=== PATIENT | female | born 1935 | race African-American/Black ===

== ENCOUNTER 2018-03-05 18:40 | Inpatient (IN) | payer MEDICARE, MEDICAID ==
[~2018-03-05 18:40] MED LIST: Iopamidol 370 76% 100 ML VIAL ONE
[2018-03-05 19:09] LABS: #Basophils 0.1 thou/uL (0.0-0.2); #Eosinphils 0.3 thou/uL (0.0-0.7); #Lymphocytes 2.7 thou/uL (1.20-3.40); #Monocytes 0.6 thou/uL (0.11-0.59); #Neutrophils 7.3 thou/uL (1.40-6.50); %Basophils 0.5 % (0.0-1.0); %Eosinophils 2.7 % (0.0-10.0); %Lymphocytes 24.5 % (21.0-51.0); %Monocytes 5.9 % (0.0-10.0); %Neutrophils 66.4 % (42.0-75.0); Hemoglobin 12.7 g/dL (12.0-16.0); Mean Corpuscular HGB CONC 31.8 g/dL (32.0-36.0); Mean Corpuscular Hemoglobin 28.3 pg (27.0-31.0); Mean Corpuscular Volume 88.8 fL (78.0-98.0); Mean Platelet Volume 9.2 fL (7.4-10.4); Platelet Count 216 thou/uL (130-400); RBC Distribution Width 12.7 % (11.5-14.5); Red Blood Cell (RBC) Count 4.48 mill/uL (4.20-5.40); White Blood Cell (WBC) Count 10.9 thou/uL (4.8-10.8)
--- NOTE | 2018-03-05 19:10 | CT ---
CT BRAIN WITHOUT CONTRAST: Comparison: None History: Stroke alert with right sided droop and weakness. Altered mental status. This began at 11 o' clock this morning, approximately 7.5 hours ago. Technique: Multiple contiguous axial images were obtained in a CT of the brain without contrast. FINDINGS: There are scattered hypodensities in the subcortical and periventricular white matter, likely seconda ry to small vessel ischemic disease. The patient has a cavum septum pellucidum. No new large confluen t infarction is seen. There is no evidence of hydrocephalus, intracranial hemorrhage, or extraaxial f luid collections. The calvarium and overlying soft tissues are unremarkable. The visualized paranasal sinuses and masto id air cells are well aerated. IMPRESSION: No evidence of acute intracranial abnormality. Dr. Olea notified of the findings at 6:48 p.m. on . POS: [facility]
[2018-03-05 19:11] LABS: PTT 29.8 SEC (22.9-36.1)
[2018-03-05 19:13] LABS: INR-International Normal Ratio 1.2
--- NOTE | 2018-03-05 19:18 | CT ---
CTA OF THE NECK WITH CONTRAST CTA OF THE HEAD WITH CONTRAST: Comparison: None. History: Stroke alert with right sided droop and weakness since 11:00 a.m. this morning. Technique: 1. Multiple contiguous axial images were obtained in a CTA of the neck with contrast. 3D sagittal and coronal MIP reformats were performed. 2. Multiple contiguous axial images were obtained in a CTA of the head with contrast. 3D sagittal and coronal MIP reformats were performed. FINDINGS: CTA NECK: The lung apices are unremarkable. No cervical adenopathy is seen. Degenerative changes are seen in th e spine. Both common carotid arteries have a normal origin from the aortic arch. These branch into normal roge alana internal and external carotid arteries. No significant stenosis per NASCET criteria is seen on ei ther side. Both vertebral arteries form a normal appearing basilar artery. No significant atherosclerotic diseas e is seen in the vertebral arteries. CTA HEAD/BRAIN: Both intracranial and internal carotid arteries are normal in caliber without significant atheroscler otic disease. There is a small amount of atherosclerotic plaque in the cavernous portion of both inte rnal carotid arteries. These branch in a normal appearing anterior and middle cerebral arteries. Ther e is no evidence of focal stenosis, occlusion or aneurysmal dilatation of the anterior circulation. Both vertebral arteries form a normal appearing basilar artery. The posterior cerebral arteries and c erebellar arteries are patent. A right posterior communicating artery is seen. There is no evidence o f focal stenosis, occlusion, or aneurysmal dilatation of the posterior circulation. IMPRESSION: 1. Unremarkable CTA of the neck. 2. Unremarkable CTA of the head. 3. Dr. Olea notified of the findings at 7:01 p.m. on 03-05-18. POS: [facility]
[2018-03-05 19:20] LABS: ALT (SGPT) 24 U/L (8-55); AST (SGOT) 23 U/L (5-34); Albumin 4.3 g/dL (3.4-4.8); Alkaline Phosphatase 52 U/L (40-150); Anion Gap 13 mmol/L (10-20); BUN (Urea Nitrogen) 15 mg/dL (9.8-20.1); Bilirubin, Total 0.7 mg/dL (0.2-1.2); CK (CPK) 81 U/L (29-168); Calc. Creatinine Clearance 0 mL/min (70-130); Carbon Dioxide 23 mmol/L (23-31); Chloride 107 mmol/L (98-107); Estimated GFR-MDRD 80; Globulin 3.6 g/dL (2.4-3.5); Glucose 100 mg/dL (83-110); Potassium 4.2 mmol/L (3.5-5.1); Protein, Total 7.9 g/dL (6.0-8.3); Sodium 139 mmol/L (136-145); Troponin I 0.126 ng/mL (< 0.028)
[2018-03-05 19:36] LABS: Bilirubin Negative (Negative); Blood, Urine Trace (Negative); Clarity CLEAR (Clear); Glucose, Urine (Dipstick) Negative (Negative); Leukocyte Negative (Negative); Nitrite Positive (Negative); Protein, Urine (Dipstick) Negative (Neg-Trace); Specific Gravity, Urine 1.027 (1.002-1.036)
[2018-03-05 19:39] LABS: Bacteria/HPF 4+ HPF (None Seen); Hyaline Casts/LPF 0-3 HYALINE CAST LPF (0-3 Hyaline); RBC/HPF 0-3 HPF (0-3); Squamous Epithelial 0-3 HPF (0-3); WBC/HPF 0-3 HPF (0-3)
[2018-03-05 20:17] LABS: Acetaminophen Less than 6.0 mcg/mL (10.0-30.0); Alcohol Less than 10 mg/dL (Less than 10); Salicylate Less than 8.0 mg/dL (15.0-30.0)
[2018-03-05 20:47] LABS: Amphetamine Not Detected (NotDetected); Barbiturates Screen Not Detected (NotDetected); Benzodiazepine Screen Not Detected (NotDetected); Cocaine Metabolite Screen Not Detected (NotDetected); Medtox Control Line Valid? VALID (VALID); Medtox Reader # READER 4; Methadone Not Detected (NotDetected); Methamphetamine Not Detected (NotDetected); Opiate Screen Not Detected (NotDetected); Oxycodone Screen Not Detected (NotDetected); Phencyclidine (PCP) Not Detected (NotDetected); THC/Cannabinoid Screen Not Detected (NotDetected); Tricyclic Screen Not Detected (NotDetected)
--- NOTE | 2018-03-05 21:10 | RAD ---
SINGLE VIEW OF THE CHEST: Comparison: 03-05-18 History: Right sided weakness with possible stroke. FINDINGS: Single view of the chest shows an enlarged but stable cardiomediastinal silhouette. There is no evide nce of consolidation, mass, or pleural effusion. Degenerative changes are seen in the spine. IMPRESSION: Cardiomegaly. POS: [facility]
[2018-03-05] MEDS ORDERED: cefTRIAXone\\ROCEPHIN 2 GM VIAL ONE (21:37)
[2018-03-05 23:47] LABS: Troponin I 0.124 ng/mL (< 0.028)
[2018-03-06 00:26] VITALS: BMI 32.1
[2018-03-06] MEDS ORDERED: Acetaminophen 325 MG TAB PO PRN ×2 (00:29→08:26)
[2018-03-06] MEDS ORDERED: PROVENTIL INHALER 6.7 G (200 INHALATIONS) INH PRN (08:25)
[2018-03-06] MEDS ORDERED: Ondansetron PF 4 MG/2 ML Vial IVP PRN ×2 (08:26)
[2018-03-06] MEDS ORDERED: hydrALAZINE 20 MG/ML VIAL SLOW IVP PRN ×2 (08:26→17:09)
[2018-03-06] MEDS ORDERED: Nitroglycerin 0.4 MG TAB (25 Tab Bottle) SL PRN (08:26)
[2018-03-06] MEDS ORDERED: Benzonatate 100 MG CAP PO PRN (08:26)
[2018-03-06] MEDS ORDERED: Senokot S 8.6-50 MG TAB PO PRN (08:26)
[2018-03-06] MEDS ORDERED: Sodium Chloride 0.65% Nasal 44 ML BOT EA NARE PRN (08:26)
[2018-03-06] MEDS ORDERED: Calcium Carbonate 500 MG ChewTAB PO PRN (08:26)
[2018-03-06] MEDS ORDERED: Bisacodyl 5 MG TAB PO PRN (08:26)
[2018-03-06 08:55] LABS: Base Excess-Venous 1.4 mmol/L (0 (+/- 2.5)); Bicarbonate (HCO3v) 27.5 mmol/L (22.0-29.0); CO2 Tension (PvCO2) 48.1 mmHg (41.0-51.0); Calcium, Ionized 1.24 mmol/L (1.12-1.32); Hemoglobin - Calc 14.2 g/dL (12.0-18.0); O2 Tension (PvO2) 50.2 mmHg (35.0-45.0); pH (Venous) 7.366 (7.35-7.45); vO2 Saturation-calc 83.4 % (94-98)
[2018-03-06] MEDS ORDERED: Lisinopril 20 MG TAB PO SCH (09:00)
[2018-03-06] MEDS ORDERED: Carvedilol 25 MG TAB PO SCH (09:00)
[2018-03-06] MEDS: Amlodipine 5 MG TAB PO SCH (10:55)
[2018-03-06] MEDS: Sodium Chloride 0.9% 1,000 ML IV SCH (10:55)
[2018-03-06] MEDS: Aspirin 325 mg Enteric Coated Tablet PO SCH (10:56)
[2018-03-06] MEDS: Famotidine 20 MG TAB PO SCH ×2 (10:56→20:17)
[2018-03-06] MEDS: Enoxaparin Sodium 40 MG/0.4 ML SYRINGE SC SCH (10:57)
[2018-03-06] MEDS ORDERED: Gadobenate Dimeglumine 529 MG/1 ML (20ML VIAL) ONE (12:49)
--- NOTE | 2018-03-06 15:53 | MRI ---
BRAIN MRI WITH AND WITHOUT CONTRAST: DATE: 03/06/2018. COMPARISON: None. HISTORY: TIA, stroke, history of right-sided weakness and facial droop. TECHNIQUE: Multiplanar, multisequence MRI imaging of the brain is obtained with and without contrast. FINDINGS: There is an area of acute infarction involving the frontal lobe posteriorly/laterally on the left ext ending to the level of the vertex consistent with a left M2 infarction. There is associated cytotoxi c edema with increased T2 and FLAIR signal within the cortex in this region. The gradient echo imagi ng demonstrates no evidence for associated acute hemorrhage. No midline shift or mass effect is present. Imaged paranasal sinuses/mastoid air cells well aerated. Arterial flow voids and at axial level of skull base appear grossly unremarkable on the T2 weighted i maging. The postcontrast imaging demonstrates no abnormal enhancement within the brain parenchyma. IMPRESSION: Acute infarction on the left within the middle cerebral artery territory as detailed above. POS: [facility]
[2018-03-06] MEDS ORDERED: cefTRIAXone\\ROCEPHIN 1 GM in Sodium Chloride 0.9% 100 ML IVPB SCH ×2 (17:00→21:00)
--- NOTE | 2018-03-06 20:07 | HP ---
PRIMARY CARE PHYSICIAN: Fabiano Camacho MD CHIEF COMPLAINT: Altered mental status and right-sided facial weakness and maybe facial droop. HISTORY OF PRESENT ILLNESS: Ms. Tillman is a pleasant 82-year-old female with history of hypertension and dyslipidemia with history of tobacco abuse more than 10 years ago, who presented to the ER with abovementioned complaint. The patient was brought in via EMS. History is mainly obtained by the multiple family members present at the bedside. The patient is still very confused and is not able to answer any of the questions directly. According to Ms. Tillman's daughters, she is at baseline awake, alert, and oriented x3. She is independent with her ADLs and IADLs. She has no history of dementia or any neurological deficits. She has no history of stroke. Yesterday, she was brought in to [facility], when she started to show signs of confusion around 11 a.m. yesterday. She was last seen normal around 11 a.m. and confusion started around 3 p.m. The patient daughter noticed that she was looking confused and was having difficulty with her speech and her speech was slurred. She has been having some increased cough and wheeze for the last 2 days as well. She has no recent illnesses otherwise. No fever, chills, nausea, vomiting, diarrhea, or abdominal pain. They noticed that she is lethargic and has generalized weakness as well. In the [facility], her NIH score was 3 mainly because of her speech problems. Her blood pressure upon presentation was 220/110 and she was treated with sodium nitroprusside and was transferred to our facility for further evaluation and care. CT scan of the head done in [facility] was equivocal and showed low density area around left side. TPA was not given due to elevated blood pressure. Upon presentation to our emergency room, her blood pressure was 137/95. She was awake and alert, but somewhat hypoxic with 93% to 94% oxygen saturation. Ectopy was noticed in the EKG. Troponin was noticed to be 0.137. A 12-lead EKG was done, which showed frequent PVCs, otherwise normal sinus rhythm without any acute ST or T-wave changes. Her urinalysis was consistent with possible urinary tract infection and she was given Rocephin. She also received 81 mg of aspirin and nebulizer in the emergency room. Her CT angio of head and neck was done in our emergency room, which did not reveal any signs of acute stroke or occlusion, but the patient continued to have confusion and is now being admitted to Stroke floor for further workup. She has been off Cardene drip since she has presented into our emergency room. The patient has been noticed to have frequent ectopic beats while on the floor as well. These are noticed to be mainly PVCs. When I asked the family, they reported that the patient has been diagnosed as having multiple PVCs and follows up with Dr. Rosa in the Cardiology Clinic and reportedly has had an unremarkable workup and was told to come back in 1 year. PAST MEDICAL HISTORY: 1. Hypertension. 2. Dyslipidemia. 3. History of CVA according to the ER notes, but the family declines any history of stroke in the past. PAST SURGICAL HISTORY: Bladder surgery. PSYCHIATRIC HISTORY: No anxiety. No depression. SOCIAL HISTORY: She lives at home with family and is independent with her ADLs and IADLs according to her daughters present at bedside. She has history of tobacco abuse, but has quite smoking more than 10 years ago. ALLERGIES: NO KNOWN MEDICATION ALLERGIES. CURRENT MEDICATIONS: 1. Ventolin inhaler every 6 hours as needed. 2. Carvedilol 25 mg b.i.d. 3. Lisinopril 40 mg daily. 4. Amlodipine 5 mg daily. 5. Simvastatin 40 mg daily. REVIEW OF SYSTEMS: It is limited as the patient is not able to answer any of the questions directly. According to her family, her symptoms have improved only slightly. She continues to be confused and even though her speech is coming back, it is unintelligible as she is not making any sense and her words are still slurred. At any time, they did not notice any muscle weakness. CODE STATUS: Full code as discussed with the family at bedside. The patient is not able to make decisions at this time. LABORATORY DATA: Lab examination, CBC shows WBC of 10.9 without any left shift. PT, PTT, and INR are unremarkable. Her serum chemistries are unremarkable as well. Cardiac enzymes have been trended and they have trended from 0.137 to 0.110 with a normal CK-MB. TSH is normal. Lactic acid is normal at 0.9. Liver enzymes are unremarkable. Urinalysis; +4 bacteria, nitrite, and drug screen is negative. CT scan of the brain by emergency room shows a left density in the left side of the brain around the Broca area, which is nonspecific. She has evidence of old lacunar infarction on the left side. Chest x-ray by my review shows cardiomegaly without any effusion, edema, or infiltrate. PHYSICAL EXAMINATION: VITAL SIGNS: Most recent vital signs; temperature 98.8, pulse is 66, respirations 20, saturating 97% on room air, and blood pressure 136/82. GENERAL: No acute distress. She is lying comfortably in bed. She follows simple commands, but does not able to give answers to most of my questions straight. She is having a hard time finding the words and appears confused. HEENT: Mucous membrane is moist and pain. No oropharyngeal exudate or erythema. Head is normocephalic and atraumatic. Pupils equal and reactive to light and accommodation. Extraocular movement intact. NECK: Supple without any lymphadenopathy, JVD, or bruit. CHEST: Clear to auscultation without any wheezing, rales, or rhonchi. HEART: Rate and rhythm are regular without any murmur, rubs, or gallops. ABDOMEN: Soft, nontender, and nondistended with positive bowel sounds. EXTREMITIES: Free of any cyanosis, clubbing, or edema. NEUROLOGIC: She has at least 4/5 muscle strength in both extremities upper and lower. Her only neurologic deficit is slurred speech and difficulty finding words. She is not able to tell me her date of or where she is. She is able to me that she is "surgical," so it seems like that, she understands where she is, but does not able to form the correct words. SKIN: Free of any rashes or bruises. Feel warm and dry to touch. IMPRESSION AND PLAN: 1. Altered mental status. The MRI of the brain has since been done and the results show acute left-sided middle cerebral artery territory infarction. This is consistent with acute cerebrovascular accident and is most likely responsible for most of her symptoms. Urinary tract infection is also found as her urine culture already came back positive for Escherichia coli. She will be treated with aspirin and high-dose statins. We will increase the Lipitor from 20 to 40 mg daily and consult Stroke Team and Neurology for the acute cerebrovascular accident. We will put her on IV antibiotics namely Rocephin until the final cultures and sensitivities are back. We will hold her lisinopril to allow for permissive hypertension and use Coreg per the stoke protocol if the systolic blood pressure is more than 180. 2. Acute left-sided cerebrovascular accident. As above, we will put her on aspirin and statin and get her evaluated by Stroke team including OT, PT, and speech therapist as well as neurologist. Echocardiogram has been ordered as well. Her CT angio neck was negative for any evidence of occlusions in the carotid arteries. 3. Hypertensive urgency. This is most likely secondary to acute cerebrovascular accident. We will allow for permissive hypertension with the acute cerebrovascular accident and use p.r.n. antihypertensives if the blood pressure is higher than 220 systolic/100 diastolic. 4. Urinary tract infection. She does not have any signs or symptoms of sepsis at this time. Blood culture and urine culture have been obtained and we will follow the final results. Continue Rocephin for now. 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 Echocardiogram has been ordered and as the patient is asymptomatic, she will continue to follow with Cardiology in the outpatient setting. At this time, no arrhythmia has been documented, other than the PVCs on the heart monitor and I do not feel that this is responsible for her acute cerebrovascular accident, which most likely appears to be ischemic in nature. 6. Elevated cardiac enzymes, most likely demand ischemia from acute cerebrovascular accident. It is trended down. We will continue aspirin and beta marcio and repeat the troponin in the morning. Echocardiogram has been ordered. 7. Code status. Full code discussed with the patient. 8. Deep venous thrombosis and gastrointestinal prophylaxis. 9. Disposition. Ms. Tillman is currently being admitted to the hospital for acute cerebrovascular accident. Estimated length of stay at this time is at least 2 to 3 midnights. Further management will depend upon her clinical course. Job ID: [id number]
[2018-03-06] MEDS: Atorvastatin Calcium 40 MG TAB PO SCH (20:17)
[2018-03-06] MEDS ORDERED: Atorvastatin Calcium 20 MG TAB PO SCH (21:00)
[2018-03-07] MEDS: Sodium Chloride 0.9% 1,000 ML IV SCH ×2 (04:40→16:06)
[2018-03-07 06:25] LABS: #Basophils 0.1 thou/uL (0.0-0.2); #Eosinphils 0.2 thou/uL (0.0-0.7); #Lymphocytes 2.4 thou/uL (1.20-3.40); #Monocytes 0.6 thou/uL (0.11-0.59); #Neutrophils 5.3 thou/uL (1.40-6.50); %Basophils 0.6 % (0.0-1.0); %Eosinophils 2.8 % (0.0-10.0); %Lymphocytes 28.1 % (21.0-51.0); %Monocytes 6.8 % (0.0-10.0); %Neutrophils 61.7 % (42.0-75.0); Mean Corpuscular Hemoglobin 27.6 pg (27.0-31.0); Mean Corpuscular Volume 89.2 fL (78.0-98.0); Mean Platelet Volume 9.1 fL (7.4-10.4); Platelet Count 190 thou/uL (130-400); RBC Distribution Width 12.5 % (11.5-14.5); Red Blood Cell (RBC) Count 3.99 mill/uL (4.20-5.40); White Blood Cell (WBC) Count 8.5 thou/uL (4.8-10.8)
[2018-03-07 06:36] LABS: Anion Gap 11 mmol/L (10-20); BUN (Urea Nitrogen) 17 mg/dL (9.8-20.1); Calc. Creatinine Clearance 77 mL/min (70-130); Carbon Dioxide 22 mmol/L (23-31); Chloride 108 mmol/L (98-107); Estimated GFR-MDRD 83; Glucose 74 mg/dL (83-110); Potassium 3.7 mmol/L (3.5-5.1); Sodium 137 mmol/L (136-145)
[2018-03-07] MEDS: Enoxaparin Sodium 40 MG/0.4 ML SYRINGE SC SCH (08:46)
[2018-03-07] MEDS: Aspirin 325 mg Enteric Coated Tablet PO SCH (08:50)
[2018-03-07] MEDS: Famotidine 20 MG TAB PO SCH ×2 (08:50→21:41)
[2018-03-07] MEDS: Amlodipine 5 MG TAB PO SCH (08:50)
[2018-03-07] MEDS: Carvedilol 25 MG TAB PO SCH (08:50)
[2018-03-07 11:55] LABS: Cardiac Risk 3.6 (Less than 4.5)
--- NOTE | 2018-03-07 12:58 | RAD ---
CHEST ONE VIEW: HISTORY: Cough after eating. COMPARISON: 03/05/2018 FINDINGS: There is opacification of the left hemithorax, likely due to pleural effusion, with superimposed pare nchymal change, which may be due to pneumonia or aspiration. Enlarged cardiac silhouette. Atheroscl erosis of the aorta. No pneumothorax. IMPRESSION: Opacification of the left hemithorax, as described above. Given the history of coughing after eating , the possibility of aspiration cannot be excluded. Consider further evaluation with a modified mariela um swallow in the presence of a speech pathologist. POS: [facility]
--- NOTE | 2018-03-07 16:13 | PDOC.PN ---
- Subjective Encounter Start Date: 03/07/18 Encounter Start Time: 11:00 Ms. Tillman was seen today in follow-up of acute CVA. She does not have any complaints this morning. She developed a coughing spell while eating , when I was in the room. - Objective Resuscitation Status - Order Detail: 03/06/18 16:49 Resuscitation Status Routine Resuscitation Status: FULL: Full Resuscitation Discussed with: Pt and family memebers Vital Signs & Weight: Vital Signs (12 hours) Temp Pulse Resp BP BP BP Pulse Ox 03/07/18 15:48 98.7 F 65 20 138/62 98 03/07/18 13:27 142/78 H 03/07/18 12:00 98.5 F 69 20 148/70 H 96 03/07/18 10:37 51 L 16 100 03/07/18 08:50 80 154/70 H 03/07/18 08:00 98.7 F 80 16 154/70 H 95 Weight Admit Weight 205 lb Weight 205 lb I&O: 03/06/18 03/07/18 03/08/18 06:59 06:59 06:59 Output Total 325 Balance -325 Result Diagrams: 03/07/18 06:11 03/07/18 06:11 Phys Exam - Physical Examination HEENT: PERRLA + bilateral wheezing and rhonchi, and decreased breath sounds at the bases Cardiovascular: RRR, no significant murmur, no rub Gastrointestinal: soft, non-tender, no distention, positive bowel sounds Musculoskeletal: no edema Dx/Plan (1) Acute ischemic left MCA stroke Code(s): I63.512 - CEREB INFRC D/T UNSP OCCLS OR STENOS OF LEFT MID CEREB ART Status: Acute (2) Hypertension Code(s): I10 - ESSENTIAL (PRIMARY) HYPERTENSION Status: Chronic (3) Dysphagia due to recent stroke Code(s): I69.391 - DYSPHAGIA FOLLOWING CEREBRAL INFARCTION Status: Acute (4) UTI (urinary tract infection) Status: Acute - Plan * Acute Left MCA CVA- she has dysarthria and dysphagia with confusion. - continue aspirin and lipitor * Echo results noted * Dysphagia- she may have aspirated this morning. Chest X-ray was noted, with Left Pleural effusion, and infiltrate- will change antibiotic to Zosyn to cover for aspiration pneumonia * HTN- blood pressure is better controlled * UTI- urine culture is growing E. coli- continue Zosyn * Await further input from Neurology * Continue Speech therapy .
[2018-03-07] MEDS: Piperacillin/Tazobactam 3.375 GM in Sodium Chloride 0.9% 100 ML IVPB SCH (17:19)
[2018-03-07] MEDS: Atorvastatin Calcium 40 MG TAB PO SCH (21:41)
[2018-03-08] MEDS: Piperacillin/Tazobactam 3.375 GM in Sodium Chloride 0.9% 100 ML IVPB SCH ×4 (00:52→18:27)
--- NOTE | 2018-03-08 01:32 | CON ---
DATE OF CONSULTATION: 03/07/2018 TYPE OF CONSULTATION: Neurology. CONSULTING PHYSICIAN: Hospitalist Service. IMPRESSION: Resolving left middle cerebral artery stroke, which appears to be a primary thrombosis. PLAN: 1. Aspirin 325 mg per day. 2. Continue statin. 3. PT assessment to determine whether the patient needs any inpatient rehab. HISTORY OF PRESENT ILLNESS: Ms. Tillman is an 82-year-old black female with a history of hypertension and hyperlipidemia. She presented with acute right- sided weakness and language difficulty. Workup subsequently revealed evidence of a left MCA stroke. Her CTA did not show any extracranial or intracranial stenosis of significance. Echocardiogram shows a normal ejection fraction of 50% to 55%. Her symptoms have remarkably improved over the last 24 hours. Family notes that she was answering questions in an inappropriate fashion at first, but is doing much better this afternoon. She was able to walk into the hospital and had fairly preserved right leg function. She has not had any stroke symptoms in quite sometime. Her EKG showed a sinus rhythm with frequent PVCs. PAST MEDICAL HISTORY: Listed above. ALLERGIES: NONE REPORTED. SOCIAL HISTORY: No tobacco use. FAMILY HISTORY: Noncontributory. REVIEW OF SYSTEMS: No complaint of headache, nausea, vomiting, vertigo, chest pain, or shortness of breath. PHYSICAL EXAMINATION: GENERAL: She is a somewhat overweight elderly lady, lying in bed, in no distress. HEENT: Pupils are equal and reactive. Conjunctivae are clear. Oropharynx is clear. NECK: No lymphadenopathy. EXTREMITIES: No cyanosis, clubbing, or edema. NEUROLOGIC: She was alert and appropriate. She followed commands appropriately. She seemed to have fluent output with only minimal word finding difficulty. Cranial nerve exam showed symmetric appearance to her face without any lateralized abnormalities. Motor exam showed diminished arm roll on the right and diminished hand evp of [employer] as well. She had good antigravity strength in both the arms and the legs. Sensation was subjectively intact. Gait was not tested, but reportedly she walked to the bathroom with some standby assistance. SUMMARY: This is an elderly lady, who is making a remarkable recovery from what was a fairly large infarct. We would continue her statin and aspirin and determine her course of discharge. Job ID: [id number] MTDD
[2018-03-08 04:31] LABS: Troponin I 0.117 ng/mL (< 0.028)
[2018-03-08 05:33] LABS: CKMB 0.9 ng/mL (0-6.6)
[2018-03-08] MEDS: Carvedilol 25 MG TAB PO SCH (09:05)
[2018-03-08] MEDS: Enoxaparin Sodium 40 MG/0.4 ML SYRINGE SC SCH (09:05)
[2018-03-08] MEDS: Amlodipine 5 MG TAB PO SCH (09:06)
[2018-03-08] MEDS: Aspirin 325 mg Enteric Coated Tablet PO SCH (09:06)
[2018-03-08] MEDS: Famotidine 20 MG TAB PO SCH ×2 (09:06→20:27)
[2018-03-08] MEDS: Sodium Chloride 0.9% 1,000 ML IV SCH (11:15)
--- NOTE | 2018-03-08 11:37 | PDOC.PN ---
- Subjective Encounter Start Date: 03/08/18 Encounter Start Time: 10:00 Ms. Tillman was seen today in follow-up of acute CVA. She says she feels better today. He denies feeling short of breath. she denies any chest pain. He speech is a little more clear. - Objective Resuscitation Status - Order Detail: 03/06/18 16:49 Resuscitation Status Routine Resuscitation Status: FULL: Full Resuscitation Discussed with: Pt and family memebers MAR Reviewed: Yes Vital Signs & Weight: Vital Signs (12 hours) Temp Pulse Resp BP Pulse Ox 03/08/18 09:06 50 L 03/08/18 08:00 98.5 F 50 L 18 176/78 H 100 03/08/18 04:00 98.3 F 69 69 H 150/77 H 19 L 03/08/18 00:00 98.9 F 63 18 98 Weight Admit Weight 205 lb Weight 205 lb I&O: 03/07/18 03/08/18 03/09/18 06:59 06:59 06:59 Output Total 325 Balance -325 Result Diagrams: 03/07/18 06:11 03/07/18 06:11 Phys Exam - Physical Examination HEENT: PERRLA Respiratory: wheezing present + occsional rhonchi Cardiovascular: RRR, no significant murmur, no rub Gastrointestinal: soft, non-tender, no distention, positive bowel sounds Musculoskeletal: no edema Neurological: moves all 4 limbs + dysarthria Dx/Plan (1) Acute ischemic left MCA stroke Code(s): I63.512 - CEREB INFRC D/T UNSP OCCLS OR STENOS OF LEFT MID CEREB ART Status: Acute (2) Hypertension Code(s): I10 - ESSENTIAL (PRIMARY) HYPERTENSION Status: Chronic (3) Dysphagia due to recent stroke Code(s): I69.391 - DYSPHAGIA FOLLOWING CEREBRAL INFARCTION Status: Acute (4) UTI (urinary tract infection) Status: Acute - Plan * Acute CVA- continue aspirn therapy, and statin- her LDL is not quite to goal- so will consider increasing the dose of Lipitor, at least in the acuet phase of her stroke * Dysphagia- her diet has been downgraded to Pureed. I have also spoken with the patient and her daughter about sitting her up more upright when she is eating- Continue Speech Therapy * HTN- her blood pressure is beginning to trend up- will stop the IV fluids, and will add Lisinopril * Anticipate retirement placement prior to discharge.
--- NOTE | 2018-03-08 17:14 | RAD ---
MODIFIED BARIUM SWALLOW: 03/08/18 HISTORY: Feeding difficulty. Dysphagia, unspecified. EXPOSURE: 1.3 minutes. 0.716 Gy*cm2. FINDINGS: In the presence of speech pathologist, the patient administered thin liquid, nectar thick, honey thic k, mechanical soft and solid consistencies. FINDINGS: There is evidence of a prominent cricopharyngeus. No evidence of penetration or aspiration. IMPRESSION: No evidence of penetration or aspiration. Please refer to speech pathologist report for feeding recom mendation. POS: [facility]
[2018-03-08] MEDS ORDERED: Lisinopril 5 MG TAB PO SCH (18:00)
[2018-03-08] MEDS: Atorvastatin Calcium 40 MG TAB PO SCH (20:28)
[2018-03-09] MEDS: Piperacillin/Tazobactam 3.375 GM in Sodium Chloride 0.9% 100 ML IVPB SCH ×3 (01:16→13:06)
[2018-03-09] MEDS: Amlodipine 5 MG TAB PO SCH (09:52)
[2018-03-09] MEDS: Aspirin 325 mg Enteric Coated Tablet PO SCH (09:52)
[2018-03-09] MEDS: Carvedilol 25 MG TAB PO SCH (09:52)
[2018-03-09] MEDS: Famotidine 20 MG TAB PO SCH (09:52)
[2018-03-09] MEDS: Enoxaparin Sodium 40 MG/0.4 ML SYRINGE SC SCH (09:53)
--- NOTE | 2018-03-09 10:47 | PDOC.PN ---
- Subjective Encounter Start Date: 03/09/18 Encounter Start Time: 10:46 Ms. Tillman was seen today in follow-up of Acute CVA. She does not have any complaints this morning. - Objective Resuscitation Status - Order Detail: 03/06/18 16:49 Resuscitation Status Routine Resuscitation Status: FULL: Full Resuscitation Discussed with: Pt and family memebers MAR Reviewed: Yes Vital Signs & Weight: Vital Signs (12 hours) Temp Pulse Resp BP BP Pulse Ox 03/09/18 09:52 73 03/09/18 08:05 142/70 H 03/09/18 08:00 98.8 F 73 18 142/71 H 95 03/09/18 04:00 98.6 F 73 18 96 03/09/18 00:00 98.0 F 72 19 97 Weight Admit Weight 205 lb Weight 205 lb I&O: 03/08/18 03/09/18 03/10/18 06:59 06:59 06:59 Intake Total 950 Output Total 325 600 Balance -325 350 Result Diagrams: 03/07/18 06:11 03/07/18 06:11 Phys Exam - Physical Examination HEENT: PERRLA Respiratory: no wheezing, no rales, no rhonchi, clear to auscultation bilateral Cardiovascular: RRR, no significant murmur, no rub Gastrointestinal: non-tender, no distention, positive bowel sounds Musculoskeletal: no edema Dx/Plan (1) Acute ischemic left MCA stroke Code(s): I63.512 - CEREB INFRC D/T UNSP OCCLS OR STENOS OF LEFT MID CEREB ART Status: Acute (2) Hypertension Code(s): I10 - ESSENTIAL (PRIMARY) HYPERTENSION Status: Chronic (3) Dysphagia due to recent stroke Code(s): I69.391 - DYSPHAGIA FOLLOWING CEREBRAL INFARCTION Status: Acute (4) UTI (urinary tract infection) Status: Acute - Plan * Acute MCA CVA- slowly improving * HTN- trending down- better * She is [facility] for [facility].
[2018-03-09] MEDS ORDERED: Prevnar 13-Val Conj/PF 0.5 ML SYRINGE IM ONE (11:30)
[2018-03-09 11:54] VITALS: BP 131/63; TEMP 98.4
--- NOTE | 2018-03-10 09:04 | DIS ---
DATE OF ADMISSION: 03/06/2018 DATE OF DISCHARGE: 03/09/2018 PRIMARY CARE PHYSICIAN: She does not have a primary care physician. DISCHARGE DISPOSITION: To the [facility] in [place]. DISCHARGE DIAGNOSES: 1. 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 2. Hypertension. 3. Dyslipidemia. 4. Aspiration pneumonia. DISCHARGE MEDICATIONS: Include aspirin 325 mg daily, simvastatin 40 mg at bedtime, carvedilol 25 mg daily, Norvasc 5 mg daily, lisinopril 10 mg daily, and Augmentin 875 mg twice a day. PROCEDURES DONE DURING THE ADMISSION: The patient had a CT scan of the brain showing no evidence of any acute intracranial abnormalities. The patient had a CT angiogram of the neck, which was negative for any hemodynamically significant stenosis. The patient also had an MRI of the brain, showing acute infarction of the left MCA in the left MCA territory and involving the frontal lobe posteriorly, the lateral on the left extending to the level of the vertex, and the patient also had an echocardiogram showing no obvious thrombi or mass. There was no ASD or PFO. The ejection fraction was 50% to 55%. The patient also had a modified barium swallow, showing no evidence of penetration or aspiration. CODE STATUS: Full code. ALLERGIES: NO KNOWN DRUG ALLERGIES. HOSPITAL COURSE: Ms. Tillman is a pleasant 82-year-old female, who was brought to the emergency room after she started experiencing confusion and some dysarthria. She was admitted for acute stroke. She had an MRI, which demonstrated a left MCA distribution CVA. She was seen by Dr. Diaz with Neurology. She was started on aspirin therapy. It was also noted that her blood pressure was elevated on admission with systolics above 200. Amlodipine was added to her blood pressure regimen with good results over the course of the next few days. Echo was negative for any thrombus or PFO. There was no evidence of any carotid artery disease. She improves with speech therapy and is being discharged to the [facility] in [place] for more physical therapy as well as speech therapy. Job ID: [id number]
--- NOTE | 2018-03-11 13:01 | EKG ---
Test Reason : Blood Pressure : / mmHG Vent. Rate : 069 BPM Atrial Rate : 069 BPM P-R Int : 198 ms QRS Dur : 068 ms QT Int : 414 ms P-R-T Axes : 105 061 012 degrees QTc Int : 443 ms Sinus rhythm with occasional , and consecutive Premature ventricular complexes Low voltage QRS Septal infarct , age undetermined Abnormal ECG Confirmed by HAY GALLAGHER ([id number]), film editor supervisor SUNI MCADAMS ([id number]) on 03/11/2018 1:01:44 PM Referred By: Confirmed By:HAY GALLAGHER
== END 2018-03-09 15:40 | disposition swing bed (61) | DRG 64 ==
LOC: ERS 18:40 → OBSVTOIN 22:00 → INTOOBSV 22:00 → 2SE 22:00 → UNDOADMIN 22:00 → 2SE 03-06 17:09
PROVIDERS: ADMIT Internal Medicine; ATTEND Internal Medicine
DX: I63.312 Cerebral infarction due to thrombosis of left middle cerebral artery (principal); J69.0 Pneumonitis due to inhalation of food and vomit; N39.0 Urinary tract infection, site not specified; I24.8 Other forms of acute ischemic heart disease; R40.2362 Coma scale, best motor response, obeys commands, at arrival to emergency department; R40.2142 Coma scale, eyes open, spontaneous, at arrival to emergency department; R40.2252 Coma scale, best verbal response, oriented, at arrival to emergency department; I16.0 Hypertensive urgency; E78.5 Hyperlipidemia, unspecified; Z87.891 Personal history of nicotine dependence; B96.20 Unspecified Escherichia coli [E. coli] as the cause of diseases classified elsewhere; I10 Essential (primary) hypertension; I49.3 Ventricular premature depolarization; Z23 Encounter for immunization; R13.10 Dysphagia, unspecified
CPT/HCPCS: 36415; 36416; 70450; 70496; 70498; 70553; 71045; 74230; 80048; 80061; 80306; 80307; 81003; 81015; 82330; 82435; 82553; 82803; 83605; 84132; 84295; 84443; 84484; 85014; 85025; 87040; 87077; 87086; 87186; 90471; 90662; 90670; 93005; 93306; 94640; 96365; 96366; 96367; A9579; G0008; G0009; G8978-GP-CK; G8979-GP-CJ; G8987-GO-CL; G8988-GO-CI; G8996-GN-CI; G8996-GN-CL; G8997-GN-CH; G8997-GN-CI; G9162-GN-CL; G9163-GN-CK; J0696; J1650; J2543; J7050; J7620

== ENCOUNTER 2020-08-07 14:16 | Inpatient (IN) | payer MEDICARE, MEDICAID ==
[2020-08-07] MEDS ORDERED: hydrALAZINE 20 MG/ML VIAL SLOW IVP PRN (16:59)
[2020-08-07] MEDS ORDERED: Acetaminophen 325 MG TAB PO PRN (16:59)
[2020-08-07] MEDS ORDERED: Ondansetron ODT 4 MG TAB PO PRN (16:59)
[2020-08-07 20:48] LABS: SARS-CoV-2 PCR by NAA Not Detected (NotDetected)
[2020-08-07] MEDS ORDERED: Atorvastatin Calcium 20 MG TAB PO SCH (21:00)
[2020-08-08 05:44] LABS: #Basophils 0.1 thou/uL (0.0-0.2); #Eosinphils 0.3 thou/uL (0.0-0.7); #Lymphocytes 4.2 thou/uL (1.20-3.40); #Monocytes 0.7 thou/uL (0.11-0.59); #Neutrophils 5.9 thou/uL (1.40-6.50); %Eosinophils 2.5 % (0.0-10.0); %Lymphocytes 37.6 % (21.0-51.0); %Neutrophils 52.9 % (42.0-75.0); Hemoglobin 12.1 g/dL (12.0-16.0); Mean Corpuscular Hemoglobin 27.1 pg (27.0-31.0); Mean Corpuscular Volume 87.5 fL (78.0-98.0); Mean Platelet Volume 8.6 fL (7.4-10.4); Platelet Count 253 thou/uL (130-400); RBC Distribution Width 13.2 % (11.5-14.5); Red Blood Cell (RBC) Count 4.46 mill/uL (4.20-5.40); White Blood Cell (WBC) Count 11.1 thou/uL (4.8-10.8)
[2020-08-08 06:08] LABS: Anion Gap 11 mmol/L (10-20); BUN (Urea Nitrogen) 21 mg/dL (9.8-20.1); Calc. Creatinine Clearance 0 mL/min (70-130); Calcium 10.2 mg/dL (7.8-10.44); Carbon Dioxide 25 mmol/L (23-31); Cardiac Risk 2.9 (Less than 4.5); Chloride 108 mmol/L (98-107); Cholesterol 123 mg/dl (< 200 Desired); Glucose 92 mg/dL (83-110); HDL Cholesterol 43 mg/dL (>60 Neg Risk); LDL Cholesterol, Calculated 67 mg/dL; Potassium 4.4 mmol/L (3.5-5.1); Sodium 140 mmol/L (136-145); Triglycerides 63 mg/dL (Less than 150)
[2020-08-08] MEDS ORDERED: Aspirin 325 MG TAB ONE (08:31)
[2020-08-08] MEDS ORDERED: Aspirin 325 mg Enteric Coated Tablet PO SCH (09:00)
[2020-08-08 14:57] VITALS: BMI 28.2
[2020-08-08] MEDS ORDERED: Atorvastatin Calcium 20 MG TAB PO SCH (21:00)
[2020-08-09] MEDS ORDERED: Clopidogrel Bisulfate 75 MG TAB PO SCH (09:00)
[2020-08-09] MEDS ORDERED: Amlodipine 5 MG TAB PO SCH (09:00)
[2020-08-09 15:58] VITALS: TEMP 98.2
[2020-08-09 17:08] VITALS: BP 108/76
[2020-08-09] MEDS ORDERED: Lisinopril 20 MG TAB PO SCH (21:00)
== END 2020-08-09 17:22 | disposition home or self-care (01) | DRG 66 ==
LOC: ERS 14:16 → ERHOLD 15:47 → 2SE 08-08 14:28 → OBSVTOIN 08-08 14:58
PROVIDERS: ADMIT Internal Medicine; ATTEND Hospitalist
DX: I63.81 Other cerebral infarction due to occlusion or stenosis of small artery (principal); Z20.822 Contact with and (suspected) exposure to COVID-19; R47.01 Aphasia; G83.24 Monoplegia of upper limb affecting left nondominant side; R29.810 Facial weakness; I10 Essential (primary) hypertension; E78.5 Hyperlipidemia, unspecified; R29.700 NIHSS score 0; E78.00 Pure hypercholesterolemia, unspecified; Z79.82 Long term (current) use of aspirin; Z79.51 Long term (current) use of inhaled steroids; Z79.899 Other long term (current) drug therapy; Z87.891 Personal history of nicotine dependence
CPT/HCPCS: 36415; 70551; 80048; 80061; 83036; 85025; 87635; 93306; 99285; G0378; U0003; U0005

== ENCOUNTER 2021-03-19 10:41 | Inpatient (IN) | payer MEDICARE, MEDICAID ==
[2021-03-19] MEDS ORDERED: Diltiazem 125 MG/25 ML ONE (11:49)
[2021-03-19] MEDS ORDERED: Lorazepam 2 MG/ML VIAL SLOW IVP PRN (13:30)
[2021-03-19] MEDS ORDERED: Diltiazem 125 MG in Sodium Chloride 0.9% 100 ML IVPB SCH (13:45)
[2021-03-19] MEDS ORDERED: Ondansetron ODT 4 MG TAB PO PRN (13:46)
[2021-03-19] MEDS ORDERED: Acetaminophen 325 MG TAB PO PRN (13:46)
[2021-03-19] MEDS ORDERED: Ondansetron PF 4 MG/2 ML Vial IVP PRN (13:46)
[2021-03-19] MEDS ORDERED: Magnesium 2 GM/50 ML 2 GM in Premix Bag 1 BAG IVPB SCH (14:00)
[2021-03-19 16:28] LABS: Troponin I 0.087 ng/mL (< 0.028)
[2021-03-19 20:15] VITALS: BMI 31.3
[2021-03-19] MEDS: cefTRIAXone\\ROCEPHIN 1 GM in Sodium Chloride 0.9% 100 ML IVPB SCH (20:20)
[2021-03-19] MEDS ORDERED: Clopidogrel Bisulfate 75 MG TAB PO SCH (21:00)
[2021-03-19] MEDS: Famotidine 20 MG TAB PO SCH (21:32)
[2021-03-19] MEDS: Atorvastatin Calcium 20 MG TAB PO SCH (21:32)
[2021-03-19] MEDS: levETIRAcetam in NS 500 MG in Premix Bag 1 BAG IVPB SCH (21:32)
[2021-03-20 04:45] LABS: Hemoglobin 11.6 g/dL (12.0-16.0); Mean Corpuscular HGB CONC 31.3 g/dL (32.0-36.0); Mean Corpuscular Hemoglobin 28.6 pg (27.0-31.0); Mean Corpuscular Volume 91.6 fL (78.0-98.0); Mean Platelet Volume 8.4 fL (7.4-10.4); Platelet Count 194 thou/uL (130-400); RBC Distribution Width 12.7 % (11.5-14.5); Red Blood Cell (RBC) Count 4.04 mill/uL (4.20-5.40); White Blood Cell (WBC) Count 9.1 thou/uL (4.8-10.8)
[2021-03-20 05:59] LABS: Anion Gap 11 mmol/L (10-20); BUN (Urea Nitrogen) 19 mg/dL (9.8-20.1); Calc. Creatinine Clearance 54 mL/min (70-130); Calcium 9.4 mg/dL (7.8-10.44); Carbon Dioxide 23 mmol/L (23-31); Chloride 109 mmol/L (98-107); Glucose 99 mg/dL (83-110); Potassium 3.8 mmol/L (3.5-5.1); Sodium 139 mmol/L (136-145)
[2021-03-20 06:37] LABS: Band 1 % (5-11); Eosinophils 1 % (0-10); Lymphocytes 35 % (21-51); MDiff Complete? YES; Monocytes 5 % (0-10); Neutrophil 58 % (42-75)
[2021-03-20] MEDS ORDERED: FLU VACC QS2021-22(65YR UP)/PF 240 MCG/0.7 ML SYRINGE IM ONE (09:00)
[2021-03-20] MEDS ORDERED: Enoxaparin Sodium 40 MG/0.4 ML SYRINGE SC SCH (09:00)
[2021-03-20] MEDS: Clopidogrel Bisulfate 75 MG TAB PO SCH (10:04)
[2021-03-20] MEDS: levETIRAcetam in NS 500 MG in Premix Bag 1 BAG IVPB SCH ×2 (10:04→20:35)
[2021-03-20] MEDS: Amlodipine 5 MG TAB PO SCH (10:04)
[2021-03-20 10:49] LABS: Bacteria/HPF 2+ HPF (None Seen); Bilirubin Negative (Negative); Blood, Urine 2+ (Negative); Glucose, Urine (Dipstick) Normal (Negative); Ketone, Urine Negative (Negative); Leukocyte 500 Leu/uL (Negative); Nitrite Negative (Negative); Protein, Urine (Dipstick) 50 mg/dL (Neg-Trace); Specific Gravity, Urine 1.026 (1.002-1.036); Urobilinogen Normal mg/dL (Less than 2); WBC/HPF Greater than 50 HPF (0-3); pH, Urine 5.5 (5.0-9.0)
[2021-03-20 10:50] LABS: Clarity Cloudy (Clear)
[2021-03-20 10:51] LABS: Urine Culture Reflex No No
[2021-03-20 10:56] LABS: Amphetamine Not Detected (NotDetected); Barbiturates Screen Not Detected (NotDetected); Benzodiazepine Screen Not Detected (NotDetected); Cocaine Metabolite Screen Not Detected (NotDetected); Methadone Not Detected (NotDetected); Methamphetamine Not Detected (NotDetected); Opiate Screen Not Detected (NotDetected); Oxycodone Screen Not Detected (NotDetected); Phencyclidine (PCP) Not Detected (NotDetected); THC/Cannabinoid Screen Not Detected (NotDetected); Tricyclic Screen Not Detected (NotDetected)
[2021-03-20 11:23] LABS: SARS-CoV-2 PCR by NAA Not Detected (NotDetected)
[2021-03-20] MEDS: cefTRIAXone\\ROCEPHIN 1 GM in Sodium Chloride 0.9% 100 ML IVPB SCH (13:44)
[2021-03-20] MEDS: Lisinopril 20 MG TAB PO SCH (20:33)
[2021-03-20] MEDS: Atorvastatin Calcium 20 MG TAB PO SCH (20:33)
[2021-03-20] MEDS: Enoxaparin Sodium 100 MG/ML SYRINGE SC SCH (20:34)
[2021-03-20] MEDS: Famotidine 20 MG TAB PO SCH (20:34)
[2021-03-21 04:53] LABS: Hemoglobin 10.7 g/dL (12.0-16.0); Mean Corpuscular HGB CONC 32.1 g/dL (32.0-36.0); Mean Corpuscular Hemoglobin 29.4 pg (27.0-31.0); Mean Corpuscular Volume 91.6 fL (78.0-98.0); Mean Platelet Volume 8.4 fL (7.4-10.4); Platelet Count 189 thou/uL (130-400); RBC Distribution Width 12.7 % (11.5-14.5); Red Blood Cell (RBC) Count 3.64 mill/uL (4.20-5.40); White Blood Cell (WBC) Count 9.5 thou/uL (4.8-10.8)
[2021-03-21 04:57] LABS: Anion Gap 13 mmol/L (10-20); BUN (Urea Nitrogen) 21 mg/dL (9.8-20.1); Calc. Creatinine Clearance 54 mL/min (70-130); Calcium 8.8 mg/dL (7.8-10.44); Carbon Dioxide 21 mmol/L (23-31); Chloride 108 mmol/L (98-107); Glucose 93 mg/dL (83-110); Potassium 3.9 mmol/L (3.5-5.1); Sodium 138 mmol/L (136-145)
[2021-03-21 05:21] LABS: Band 1 % (5-11); Eosinophils 3 % (0-10); Lymphocytes 49 % (21-51); MDiff Complete? YES; Monocytes 2 % (0-10); Neutrophil 44 % (42-75); Reactive Lymphocytes 1 % (0-10)
[2021-03-21] MEDS: Amlodipine 5 MG TAB PO SCH (09:02)
[2021-03-21] MEDS: Clopidogrel Bisulfate 75 MG TAB PO SCH (09:02)
[2021-03-21] MEDS: levETIRAcetam in NS 500 MG in Premix Bag 1 BAG IVPB SCH (09:03)
[2021-03-21] MEDS: Enoxaparin Sodium 100 MG/ML SYRINGE SC SCH (09:03)
[2021-03-21] MEDS: cefTRIAXone\\ROCEPHIN 1 GM in Sodium Chloride 0.9% 100 ML IVPB SCH (13:43)
[2021-03-21] MEDS ORDERED: Magnesium 2 GM/50 ML 2 GM in Premix Bag 1 BAG IVPB SCH (15:00)
[2021-03-21] MEDS: Atorvastatin Calcium 20 MG TAB PO SCH (21:49)
[2021-03-21] MEDS: Apixaban 5 MG TAB PO SCH (21:49)
[2021-03-21] MEDS: levETIRAcetam 500 MG TAB PO SCH (21:49)
[2021-03-21] MEDS: Lisinopril 20 MG TAB PO SCH (21:49)
[2021-03-21] MEDS: Famotidine 20 MG TAB PO SCH (21:49)
[2021-03-22 04:59] LABS: Anion Gap 12 mmol/L (10-20); BUN (Urea Nitrogen) 16 mg/dL (9.8-20.1); Calc. Creatinine Clearance 56 mL/min (70-130); Calcium 8.9 mg/dL (7.8-10.44); Carbon Dioxide 22 mmol/L (23-31); Chloride 109 mmol/L (98-107); Glucose 98 mg/dL (83-110); Magnesium 2.1 mg/dL (1.6-2.6); Potassium 3.7 mmol/L (3.5-5.1); Sodium 139 mmol/L (136-145)
[2021-03-22 05:08] LABS: Hemoglobin 11.4 g/dL (12.0-16.0); Mean Corpuscular HGB CONC 31.9 g/dL (32.0-36.0); Mean Corpuscular Hemoglobin 29.2 pg (27.0-31.0); Mean Corpuscular Volume 91.7 fL (78.0-98.0); Mean Platelet Volume 8.7 fL (7.4-10.4); Platelet Count 192 thou/uL (130-400); RBC Distribution Width 12.6 % (11.5-14.5); Red Blood Cell (RBC) Count 3.89 mill/uL (4.20-5.40); White Blood Cell (WBC) Count 8.6 thou/uL (4.8-10.8)
[2021-03-22 05:42] LABS: Band 1 % (5-11); Eosinophils 4 % (0-10); Lymphocytes 38 % (21-51); MDiff Complete? YES; Monocytes 4 % (0-10); Neutrophil 53 % (42-75)
[2021-03-22] MEDS: Senokot S 8.6-50 MG TAB PO SCH ×2 (09:02→20:46)
[2021-03-22] MEDS: levETIRAcetam 500 MG TAB PO SCH ×2 (09:03→20:46)
[2021-03-22] MEDS: Apixaban 5 MG TAB PO SCH ×2 (09:03→20:45)
[2021-03-22] MEDS: Clopidogrel Bisulfate 75 MG TAB PO SCH (09:03)
[2021-03-22] MEDS ORDERED: Potassium Chloride 20 MEQ TAB PO SCH (10:00)
[2021-03-22] MEDS: cefTRIAXone\\ROCEPHIN 1 GM in Sodium Chloride 0.9% 100 ML IVPB SCH (14:30)
[2021-03-22] MEDS: Atorvastatin Calcium 20 MG TAB PO SCH (20:45)
[2021-03-22] MEDS: Saccharomyces boulardii 250 MG CAP PO SCH (20:46)
[2021-03-22] MEDS: Famotidine 20 MG TAB PO SCH (20:46)
[2021-03-22] MEDS: Lisinopril 20 MG TAB PO SCH (20:46)
[2021-03-23 05:15] LABS: Hemoglobin 11.1 g/dL (12.0-16.0); Mean Corpuscular HGB CONC 30.9 g/dL (32.0-36.0); Mean Corpuscular Hemoglobin 28.3 pg (27.0-31.0); Mean Corpuscular Volume 91.4 fL (78.0-98.0); Mean Platelet Volume 8.3 fL (7.4-10.4); Platelet Count 196 thou/uL (130-400); RBC Distribution Width 12.5 % (11.5-14.5); Red Blood Cell (RBC) Count 3.92 mill/uL (4.20-5.40); White Blood Cell (WBC) Count 8.7 thou/uL (4.8-10.8)
[2021-03-23 05:29] LABS: Anion Gap 10 mmol/L (10-20); BUN (Urea Nitrogen) 14 mg/dL (9.8-20.1); Calc. Creatinine Clearance 55 mL/min (70-130); Calcium 9.1 mg/dL (7.8-10.44); Carbon Dioxide 23 mmol/L (23-31); Chloride 110 mmol/L (98-107); Glucose 105 mg/dL (83-110); Potassium 4.2 mmol/L (3.5-5.1); Sodium 139 mmol/L (136-145)
[2021-03-23 05:48] LABS: Eosinophils 3 % (0-10); Lymphocytes 30 % (21-51); MDiff Complete? YES; Monocytes 9 % (0-10); Neutrophil 58 % (42-75)
[2021-03-23] MEDS: Apixaban 5 MG TAB PO SCH ×2 (08:35→20:50)
[2021-03-23] MEDS: Senokot S 8.6-50 MG TAB PO SCH ×2 (08:35→20:51)
[2021-03-23] MEDS: Clopidogrel Bisulfate 75 MG TAB PO SCH (08:35)
[2021-03-23] MEDS: levETIRAcetam 500 MG TAB PO SCH ×2 (08:35→20:50)
[2021-03-23] MEDS: cefTRIAXone\\ROCEPHIN 1 GM in Sodium Chloride 0.9% 100 ML IVPB SCH (13:29)
[2021-03-23] MEDS: Saccharomyces boulardii 250 MG CAP PO SCH (20:50)
[2021-03-23] MEDS: Lisinopril 20 MG TAB PO SCH (20:50)
[2021-03-23] MEDS: Famotidine 20 MG TAB PO SCH (20:50)
[2021-03-23] MEDS: Atorvastatin Calcium 20 MG TAB PO SCH (20:50)
[2021-03-24] MEDS: Clopidogrel Bisulfate 75 MG TAB PO SCH (08:48)
[2021-03-24] MEDS: Senokot S 8.6-50 MG TAB PO SCH ×2 (08:48→20:08)
[2021-03-24] MEDS: levETIRAcetam 500 MG TAB PO SCH ×2 (08:48→20:08)
[2021-03-24] MEDS: Apixaban 5 MG TAB PO SCH ×2 (08:48→20:07)
[2021-03-24] MEDS: Lisinopril 20 MG TAB PO SCH (20:07)
[2021-03-24] MEDS: Atorvastatin Calcium 20 MG TAB PO SCH (20:07)
[2021-03-24] MEDS: Saccharomyces boulardii 250 MG CAP PO SCH (20:08)
[2021-03-24] MEDS: Famotidine 20 MG TAB PO SCH (20:08)
[2021-03-24] MEDS: Cefdinir 300 MG CAP PO SCH (20:11)
[2021-03-25 08:58] VITALS: TEMP 98.2
[2021-03-25] MEDS: Senokot S 8.6-50 MG TAB PO SCH (08:59)
[2021-03-25] MEDS: Apixaban 5 MG TAB PO SCH (08:59)
[2021-03-25] MEDS: Cefdinir 300 MG CAP PO SCH (08:59)
[2021-03-25] MEDS: Clopidogrel Bisulfate 75 MG TAB PO SCH (08:59)
[2021-03-25] MEDS: levETIRAcetam 500 MG TAB PO SCH (08:59)
[2021-03-25 11:49] VITALS: BP 162/70
== END 2021-03-25 14:56 | disposition home or self-care (01) | DRG 100 ==
LOC: ERS 10:41 → ERHOLD 13:38 → 2NO 18:29
PROVIDERS: ADMIT Family Medicine; ATTEND Internal Medicine
DX: G40.909 Epilepsy, unspecified, not intractable, without status epilepticus (principal); I21.A1 Myocardial infarction type 2; N39.0 Urinary tract infection, site not specified; I50.42 Chronic combined systolic (congestive) and diastolic (congestive) heart failure; I48.91 Unspecified atrial fibrillation; Z20.822 Contact with and (suspected) exposure to COVID-19; E83.42 Hypomagnesemia; E78.5 Hyperlipidemia, unspecified; I11.0 Hypertensive heart disease with heart failure; I49.3 Ventricular premature depolarization; E66.9 Obesity, unspecified; Z86.73 Personal history of transient ischemic attack (TIA), and cerebral infarction without residual deficits; Z79.899 Other long term (current) drug therapy; Z87.891 Personal history of nicotine dependence; Z90.710 Acquired absence of both cervix and uterus; Z68.31 Body mass index [BMI] 31.0-31.9, adult
CPT/HCPCS: 36415; 80048; 80306; 81001; 82553; 83735; 84443; 85025; 93005; 93306; 95819; 95957; 96374; J0696; J1650; J1953; J3475; J3490; U0003; U0005

== ENCOUNTER 2021-06-29 05:57 | Inpatient (IN) | payer MEDICARE, MEDICAID ==
[2021-06-24 14:04] VITALS: BMI 30.4
[2021-06-29] MEDS ORDERED: CEFAZOLIN 1 GM VIAL ONE (06:35)
[2021-06-29] MEDS ORDERED: Heparin 10,000 UNITS/ 10 ML VIAL ONE (06:35)
[2021-06-29] MEDS ORDERED: Protamine Sulfate 50 MG/5 ML VIAL ONE (06:35)
[2021-06-29 07:00] LABS: INR-International Normal Ratio 1.2; PTT 31.5 sec (22.9-36.1); Prothrombin Time 15.6 sec (12.0-14.7)
[2021-06-29] MEDS ORDERED: Lidocaine 1% PF 5 ML VIAL ONE (07:42)
[2021-06-29] MEDS ORDERED: Glycopyrrolate 0.2 MG/ML 5 ML SYRINGE ONE (07:42)
[2021-06-29] MEDS ORDERED: PROPOFOL 200 MG/20 ML VIAL ONE (07:42)
[2021-06-29] MEDS ORDERED: Rocuronium Bromide 10 MG/ML (10ML VIAL) ONE (07:42)
[2021-06-29] MEDS ORDERED: Ondansetron PF 4 MG/2 ML Vial ONE (07:42)
[2021-06-29] MEDS ORDERED: Ketorolac Tromethamine 30 MG/ML VIAL ONE (07:42)
[2021-06-29] MEDS ORDERED: Dexamethasone 20 MG/5 ML VIAL ONE (07:42)
[2021-06-29] MEDS ORDERED: hydrALAZINE 20 MG/ML VIAL ONE (08:02)
[2021-06-29] MEDS ORDERED: Iopamidol 370 76% 100 ML VIAL ONE ×2 (09:08→12:00)
[2021-06-29] MEDS ORDERED: Carvedilol 3.125 MG TAB ONE (12:22)
[2021-06-29] MEDS ORDERED: Atorvastatin Calcium 40 MG TAB PO SCH (21:00)
[2021-06-29] MEDS ORDERED: levETIRAcetam 500 MG TAB PO SCH (21:00)
== END 2021-07-01 15:28 | disposition home or self-care (01) | DRG 274 ==
LOC: SURG A 05:57 → UNDODISIN 14:05
PROVIDERS: ADMIT Internal Medicine Cardiovascular Disease; ATTEND Internal Medicine Cardiovascular Disease
PROC: 02L73DK Occlusion of Left Atrial Appendage with Intraluminal Device, Percutaneous Approach (ICD-10-PCS; principal; 2021-06-29)
PROC: B24BZZ4 Ultrasonography of Heart with Aorta, Transesophageal (ICD-10-PCS; 2021-06-29)
DX: I48.19 Other persistent atrial fibrillation (principal); I31.3 Pericardial effusion (noninflammatory); I50.42 Chronic combined systolic (congestive) and diastolic (congestive) heart failure; Z00.6 Encounter for examination for normal comparison and control in clinical research program; I08.1 Rheumatic disorders of both mitral and tricuspid valves; I11.0 Hypertensive heart disease with heart failure; Z20.822 Contact with and (suspected) exposure to COVID-19; E78.5 Hyperlipidemia, unspecified; G40.909 Epilepsy, unspecified, not intractable, without status epilepticus; Z86.73 Personal history of transient ischemic attack (TIA), and cerebral infarction without residual deficits; Z79.02 Long term (current) use of antithrombotics/antiplatelets; Z79.899 Other long term (current) drug therapy; Z87.891 Personal history of nicotine dependence; Z90.710 Acquired absence of both cervix and uterus; Z79.01 Long term (current) use of anticoagulants
CPT/HCPCS: 33340; 36415; 80048; 85025; 85347; 85610; 85730; 86850; 86900; 86901; 93306; 93312; 93662; C1759; J0360; J0690; J1100; J1644; J1885; J2405; J2704; J2720; Q9967

== ENCOUNTER 2021-08-26 07:59 | Day surgery (SDC) | payer MEDICARE, MEDICAID ==
[2021-08-24 14:00] VITALS: BMI 30.4
[2021-08-26 09:20] LABS: #Eosinphils 0.4 thou/uL (0.0-0.7); #Monocytes 0.5 thou/uL (0.11-0.59); #Neutrophils 6.1 thou/uL (1.40-6.50); %Basophils 0.2 % (0.0-1.0); %Eosinophils 3.9 % (0.0-10.0); %Lymphocytes 29.6 % (21.0-51.0); %Monocytes 5.2 % (0.0-10.0); %Neutrophils 61.1 % (42.0-75.0); Hemoglobin 12.6 g/dL (12.0-16.0); Mean Corpuscular HGB CONC 30.5 g/dL (32.0-36.0); Mean Corpuscular Hemoglobin 27.7 pg (27.0-31.0); Mean Corpuscular Volume 90.9 fL (78.0-98.0); Mean Platelet Volume 8.5 fL (7.4-10.4); Platelet Count 183 thou/uL (130-400); RBC Distribution Width 13.4 % (11.5-14.5); Red Blood Cell (RBC) Count 4.53 mill/uL (4.20-5.40)
[2021-08-26 09:39] LABS: Anion Gap 11 mmol/L (10-20); BUN (Urea Nitrogen) 18 mg/dL (9.8-20.1); Calc. Creatinine Clearance 46 mL/min (70-130); Calcium 9.1 mg/dL (7.8-10.44); Carbon Dioxide 25 mmol/L (23-31); Chloride 108 mmol/L (98-107); Glucose 96 mg/dL (83-110); Sodium 140 mmol/L (136-145)
== END 2021-08-26 13:00 | disposition home or self-care (01) ==
LOC: SDC 07:59
PROVIDERS: ATTEND Internal Medicine Cardiovascular Disease
PROC: B246ZZ4 Ultrasonography of Right and Left Heart, Transesophageal (ICD-10-PCS; principal; 2021-08-26)
DX: I48.19 Other persistent atrial fibrillation (principal); I08.1 Rheumatic disorders of both mitral and tricuspid valves; I31.3 Pericardial effusion (noninflammatory); I11.0 Hypertensive heart disease with heart failure; I50.40 Unspecified combined systolic (congestive) and diastolic (congestive) heart failure; G40.909 Epilepsy, unspecified, not intractable, without status epilepticus; E78.5 Hyperlipidemia, unspecified; Z86.73 Personal history of transient ischemic attack (TIA), and cerebral infarction without residual deficits; Z87.891 Personal history of nicotine dependence; Z79.01 Long term (current) use of anticoagulants; Z79.02 Long term (current) use of antithrombotics/antiplatelets; Z79.899 Other long term (current) drug therapy; Z95.818 Presence of other cardiac implants and grafts
CPT/HCPCS: 36415; 80048; 85025; 93312

== ENCOUNTER 2021-12-28 10:48 | Day surgery (SDC) | payer MEDICARE, MEDICAID ==
[2021-12-24 12:50] VITALS: BMI 31.3
[2021-12-28] MEDS ORDERED: Lidocaine 1% MPF 2 ML VIAL ONE (13:08)
[2021-12-28] MEDS ORDERED: PROPOFOL 200 MG/20 ML VIAL ONE (13:08)
== END 2021-12-28 14:50 | disposition home or self-care (01) ==
LOC: SDC 10:48
PROVIDERS: ATTEND Internal Medicine Cardiovascular Disease
PROC: B246ZZ4 Ultrasonography of Right and Left Heart, Transesophageal (ICD-10-PCS; principal; 2021-12-28)
DX: I48.19 Other persistent atrial fibrillation (principal); I08.1 Rheumatic disorders of both mitral and tricuspid valves; I31.3 Pericardial effusion (noninflammatory); I11.0 Hypertensive heart disease with heart failure; I50.40 Unspecified combined systolic (congestive) and diastolic (congestive) heart failure; G40.909 Epilepsy, unspecified, not intractable, without status epilepticus; Z86.73 Personal history of transient ischemic attack (TIA), and cerebral infarction without residual deficits; Z87.891 Personal history of nicotine dependence; Z79.02 Long term (current) use of antithrombotics/antiplatelets; Z79.82 Long term (current) use of aspirin; Z79.899 Other long term (current) drug therapy; Z95.818 Presence of other cardiac implants and grafts
CPT/HCPCS: 93312; J2704

== ENCOUNTER 2023-02-19 17:32 | Inpatient (IN) | payer MEDICARE, MEDICAID ==
[2023-02-19] MEDS ORDERED: niCARdipine 25 MG/10 ML SDV ONE (17:34)
[2023-02-19] MEDS ORDERED: Ondansetron PF 4 MG/2 ML Vial IVP PRN (18:23)
[2023-02-19] MEDS ORDERED: Glucagon 1 MG/ML KIT IM PRN (18:23)
[2023-02-19] MEDS ORDERED: Dextrose 5% in Water 1,000 ML IV PRN (18:23)
[2023-02-19] MEDS ORDERED: Morphine 2 MG/ML VIAL SLOW IVP PRN (18:23)
[2023-02-19] MEDS ORDERED: Dextrose 50% Abboject 50 ML SYRINGE SLOW IVP PRN (18:23)
[2023-02-19] MEDS ORDERED: TETANUS, DIPHTHERIA TOX,ADULT (TDVAX) 0.5 ML VIAL IM ONE (18:23)
[2023-02-19] MEDS ORDERED: Ondansetron PF 4 MG/2 ML Vial ONE (19:28)
[2023-02-19] MEDS ORDERED: Bacitracin 1 PK ONE (20:18)
[2023-02-19] MEDS: Acetaminophen 325 MG TAB PO SCH (22:44)
[2023-02-19] MEDS: Sodium Chloride 0.9% 1,000 ML IV SCH (22:48)
[2023-02-19] MEDS: Famotidine/PF 20 mg/2ml Vial SLOW IVP SCH (22:49)
[2023-02-20] MEDS: Acetaminophen 325 MG TAB PO SCH ×4 (01:46→20:04)
[2023-02-20 03:26] LABS: #Eosinphils 0.1 thou/uL (0.0-0.7); #Monocytes 0.5 thou/uL (0.11-0.59); #Neutrophils 6.1 thou/uL (1.40-6.50); %Basophils 0.2 % (0.0-1.0); %Eosinophils 1.3 % (0.0-10.0); %Monocytes 5.6 % (0.0-10.0); %Neutrophils 66.7 % (42.0-75.0); Hematocrit 36.9 % (36.0-47.0); Hemoglobin 11.5 g/dL (12.0-16.0); Mean Corpuscular HGB CONC 31.2 g/dL (32.0-36.0); Mean Corpuscular Hemoglobin 28.6 pg (27.0-31.0); Mean Corpuscular Volume 91.8 fl (78.0-98.0); Mean Platelet Volume 10.2 fL (7.4-10.4); RBC Distribution Width 15.1 % (11.5-14.5); Red Blood Cell (RBC) Count 4.02 mill/uL (4.20-5.40); White Blood Cell (WBC) Count 9.1 10x3/uL (4.8-10.8)
[2023-02-20 03:51] LABS: Platelet Count 138 10x3/uL (130-400)
[2023-02-20 03:55] LABS: ALT (SGPT) 23 U/L (8-55); AST (SGOT) 28 U/L (5-34); Albumin 3.8 g/dL (3.4-4.8); Alkaline Phosphatase 54 U/L (40-110); Anion Gap 19 mmol/L (10-20); BUN (Urea Nitrogen) 13 mg/dL (9.8-20.1); Bilirubin, Total 0.9 mg/dL (0.2-1.2); Calc. Creatinine Clearance 66 mL/min (70-130); Carbon Dioxide 20 mmol/L (23-31); Chloride 108 mmol/L (98-107); Estimated GFR 66; Globulin 3.4 g/dL (2.4-3.5); Glucose 101 mg/dL (83-110); Potassium 4.2 mmol/L (3.5-5.1); Protein, Total 7.2 g/dL (5.8-8.1); Sodium 143 mmol/L (136-145)
[2023-02-20] MEDS: Sodium Chloride 0.9% 1,000 ML IV SCH ×4 (05:07→23:10)
[2023-02-20] MEDS: niCARdipine 25 MG in Sodium Chloride 0.9% 250 ML 250 ML IVPB SCH ×3 (06:16→21:36)
[2023-02-20] MEDS ORDERED: FLU VACC QS2023(65UP)/MF59C/PF 60 MCG/0.5 ML SYRINGE IM ONE (09:00)
[2023-02-20] MEDS ORDERED: hydrALAZINE 20 MG/ML VIAL SLOW IVP PRN (11:33)
[2023-02-20] MEDS: levETIRAcetam 500 MG TAB PO SCH (20:05)
[2023-02-20] MEDS: Carvedilol 3.125 MG TAB PO SCH (20:05)
[2023-02-20] MEDS: Famotidine/PF 20 mg/2ml Vial SLOW IVP SCH (20:05)
[2023-02-20] MEDS: Lisinopril 20 MG TAB PO SCH (20:05)
[2023-02-20] MEDS: Atorvastatin Calcium 20 MG TAB PO SCH (20:05)
[2023-02-20] MEDS ORDERED: niCARdipine 50 MG, Admixture Fee 1 EACH in Sodium Chloride 0.9% 250 ML 230 ML IV SCH (22:45)
[2023-02-20] MEDS ORDERED: niCARdipine 40MG In NaCl 40 MG/200 ML BAG IVPB SCH (22:45)
[2023-02-21] MEDS: Acetaminophen 325 MG TAB PO SCH ×4 (01:23→17:45)
[2023-02-21] MEDS ORDERED: Furosemide 40 MG/4 ML VIAL SLOW IVP SCH (02:45)
[2023-02-21] MEDS: Sodium Chloride 0.9% 1,000 ML IV SCH ×2 (05:39→08:43)
[2023-02-21 07:05] LABS: #Monocytes 0.6 thou/uL (0.11-0.59); #Neutrophils 8.5 thou/uL (1.40-6.50); %Basophils 0.2 % (0.0-1.0); %Eosinophils 0.4 % (0.0-10.0); %Lymphocytes 16.6 % (21.0-51.0); %Monocytes 5.8 % (0.0-10.0); %Neutrophils 76.5 % (42.0-75.0); Hematocrit 37.6 % (36.0-47.0); Hemoglobin 11.4 g/dL (12.0-16.0); Mean Corpuscular HGB CONC 30.3 g/dL (32.0-36.0); Mean Corpuscular Hemoglobin 28.4 pg (27.0-31.0); Mean Corpuscular Volume 93.8 fl (78.0-98.0); Mean Platelet Volume 10.8 fL (7.4-10.4); Platelet Count 153 10x3/uL (130-400); RBC Distribution Width 15.4 % (11.5-14.5); Red Blood Cell (RBC) Count 4.01 mill/uL (4.20-5.40)
[2023-02-21 07:32] LABS: Anion Gap 13 mmol/L (10-20); BUN (Urea Nitrogen) 17 mg/dL (9.8-20.1); Calc. Creatinine Clearance 60 mL/min (70-130); Calcium 8.7 mg/dL (7.8-10.44); Carbon Dioxide 25 mmol/L (23-31); Chloride 108 mmol/L (98-107); Estimated GFR 57; Glucose 130 mg/dL (83-110); Potassium 3.9 mmol/L (3.5-5.1); Sodium 142 mmol/L (136-145)
[2023-02-21] MEDS: Carvedilol 3.125 MG TAB PO SCH ×2 (08:42→20:23)
[2023-02-21] MEDS: dilTIAZem CD 180 MG CAP PO SCH (08:42)
[2023-02-21] MEDS: Isosorbide Mononitrate 60 MG ER.TAB PO SCH (08:42)
[2023-02-21] MEDS: levETIRAcetam 500 MG TAB PO SCH ×2 (08:42→20:23)
[2023-02-21] MEDS ORDERED: Cefepime 2 GM in Sodium Chloride 0.9% 100 ML IVPB SCH ×2 (10:00→12:00)
[2023-02-21] MEDS: Ipratropium/Albuterol 3 ML NEB NEB SCH ×3 (10:57→18:45)
[2023-02-21] MEDS: GUAIFENESIN SF SOLN 200 MG/10 ML UDCUP PO PRN (11:04)
[2023-02-21] MEDS: Atorvastatin Calcium 20 MG TAB PO SCH (20:22)
[2023-02-21] MEDS: Famotidine/PF 20 mg/2ml Vial SLOW IVP SCH (20:23)
[2023-02-21] MEDS: Lisinopril 20 MG TAB PO SCH (20:23)
[2023-02-22] MEDS: Cefepime 2 GM in Sodium Chloride 0.9% 100 ML IVPB SCH ×2 (00:29→12:50)
[2023-02-22] MEDS: Acetaminophen 325 MG TAB PO SCH ×4 (00:30→17:49)
[2023-02-22] MEDS: Sodium Chloride 0.9% 1,000 ML IV SCH ×2 (00:40→05:57)
[2023-02-22 06:12] LABS: Anion Gap 8 mmol/L (10-20); BUN (Urea Nitrogen) 20 mg/dL (9.8-20.1); Calc. Creatinine Clearance 58 mL/min (70-130); Calcium 8.4 mg/dL (7.8-10.44); Carbon Dioxide 28 mmol/L (23-31); Chloride 110 mmol/L (98-107); Estimated GFR 55; Glucose 102 mg/dL (83-110); Potassium 3.9 mmol/L (3.5-5.1); Sodium 142 mmol/L (136-145)
[2023-02-22 07:08] LABS: #Eosinphils 0.5 thou/uL (0.0-0.7); #Monocytes 0.7 thou/uL (0.11-0.59); #Neutrophils 5.1 thou/uL (1.40-6.50); %Basophils 0.2 % (0.0-1.0); %Eosinophils 5.3 % (0.0-10.0); %Lymphocytes 25.5 % (21.0-51.0); %Monocytes 8.4 % (0.0-10.0); %Neutrophils 60.5 % (42.0-75.0); Hematocrit 32.8 % (36.0-47.0); Hemoglobin 10.1 g/dL (12.0-16.0); Mean Corpuscular HGB CONC 30.8 g/dL (32.0-36.0); Mean Corpuscular Hemoglobin 28.9 pg (27.0-31.0); Mean Corpuscular Volume 93.7 fl (78.0-98.0); Mean Platelet Volume 11.6 fL (7.4-10.4); Platelet Count 132 10x3/uL (130-400); RBC Distribution Width 15.6 % (11.5-14.5); White Blood Cell (WBC) Count 8.4 10x3/uL (4.8-10.8)
[2023-02-22] MEDS: Ipratropium/Albuterol 3 ML NEB NEB SCH ×4 (08:11→18:36)
[2023-02-22] MEDS: dilTIAZem CD 180 MG CAP PO SCH (08:28)
[2023-02-22] MEDS: levETIRAcetam 500 MG TAB PO SCH ×2 (08:28→20:26)
[2023-02-22] MEDS: Carvedilol 6.25 MG TAB PO SCH ×2 (08:28→20:26)
[2023-02-22] MEDS: Isosorbide Mononitrate 60 MG ER.TAB PO SCH (08:28)
[2023-02-22] MEDS: GUAIFENESIN SF SOLN 200 MG/10 ML UDCUP PO PRN ×2 (09:36→21:57)
[2023-02-22] MEDS: Famotidine/PF 20 mg/2ml Vial SLOW IVP SCH (20:25)
[2023-02-22] MEDS: Atorvastatin Calcium 20 MG TAB PO SCH (20:25)
[2023-02-22] MEDS: Senokot S 8.6-50 MG TAB PO SCH (20:25)
[2023-02-22] MEDS: Lisinopril 20 MG TAB PO SCH (20:26)
[2023-02-22] MEDS: Labetalol HCl 100 MG/20 ML VIAL SLOW IVP PRN (21:53)
[2023-02-23] MEDS: Acetaminophen 325 MG TAB PO SCH ×4 (00:40→17:53)
[2023-02-23] MEDS: Labetalol HCl 100 MG/20 ML VIAL SLOW IVP PRN ×2 (04:47→15:17)
[2023-02-23] MEDS: Ipratropium/Albuterol 3 ML NEB NEB SCH ×4 (07:05→18:42)
[2023-02-23] MEDS: levETIRAcetam 500 MG TAB PO SCH ×2 (08:18→21:02)
[2023-02-23] MEDS: Carvedilol 6.25 MG TAB PO SCH ×2 (08:19→21:04)
[2023-02-23] MEDS: dilTIAZem CD 180 MG CAP PO SCH (08:19)
[2023-02-23] MEDS: Senokot S 8.6-50 MG TAB PO SCH ×2 (08:19→21:05)
[2023-02-23] MEDS: Polyethylene Glycol 3350 17 GM Packet PO SCH (08:19)
[2023-02-23] MEDS: Isosorbide Mononitrate 60 MG ER.TAB PO SCH (08:19)
[2023-02-23 12:36] VITALS: BMI 34.7
[2023-02-23] MEDS ORDERED: Furosemide 40 MG/4 ML VIAL SLOW IVP SCH (13:15)
[2023-02-23] MEDS ORDERED: Amoxicillin/Potassium Clav 500 MG TAB PO SCH (21:00)
[2023-02-23] MEDS ORDERED: Cefepime 2 GM in Sodium Chloride 0.9% 100 ML IVPB SCH (21:00)
[2023-02-23] MEDS: Lisinopril 20 MG TAB PO SCH (21:03)
[2023-02-23] MEDS: Famotidine/PF 20 mg/2ml Vial SLOW IVP SCH (21:03)
[2023-02-23] MEDS: Atorvastatin Calcium 20 MG TAB PO SCH (21:04)
[2023-02-24] MEDS: Acetaminophen 325 MG TAB PO SCH ×3 (00:17→18:20)
[2023-02-24] MEDS: Labetalol HCl 100 MG/20 ML VIAL SLOW IVP PRN (05:05)
[2023-02-24 06:08] LABS: #Basophils 0.1 thou/uL (0.0-0.2); #Eosinphils 0.4 thou/uL (0.0-0.7); #Monocytes 0.6 thou/uL (0.11-0.59); #Neutrophils 4.2 thou/uL (1.40-6.50); %Basophils 0.6 % (0.0-1.0); %Eosinophils 5.4 % (0.0-10.0); %Monocytes 7.8 % (0.0-10.0); %Neutrophils 52.8 % (42.0-75.0); Hematocrit 34.2 % (36.0-47.0); Hemoglobin 10.7 g/dL (12.0-16.0); Mean Corpuscular HGB CONC 31.3 g/dL (32.0-36.0); Mean Corpuscular Hemoglobin 28.6 pg (27.0-31.0); Mean Corpuscular Volume 91.4 fl (78.0-98.0); Mean Platelet Volume 11.2 fL (7.4-10.4); Platelet Count 147 10x3/uL (130-400); Red Blood Cell (RBC) Count 3.74 mill/uL (4.20-5.40); White Blood Cell (WBC) Count 7.9 10x3/uL (4.8-10.8)
[2023-02-24 06:51] LABS: Anion Gap 12 mmol/L (10-20); Calcium 8.7 mg/dL (7.8-10.44); Carbon Dioxide 27 mmol/L (23-31); Chloride 106 mmol/L (98-107); Glucose 99 mg/dL (83-110); Potassium 3.9 mmol/L (3.5-5.1); Sodium 141 mmol/L (136-145)
[2023-02-24 07:01] LABS: BUN (Urea Nitrogen) 19 mg/dL (9.8-20.1); Calc. Creatinine Clearance 64 mL/min (70-130); Estimated GFR 62
[2023-02-24] MEDS: Ipratropium/Albuterol 3 ML NEB NEB SCH ×4 (07:19→19:47)
[2023-02-24] MEDS ORDERED: Azithromycin 250 MG TAB PO SCH (09:00)
[2023-02-24] MEDS ORDERED: Furosemide 40 MG/4 ML VIAL SLOW IVP SCH (09:15)
[2023-02-24] MEDS: Polyethylene Glycol 3350 17 GM Packet PO SCH (09:18)
[2023-02-24] MEDS: dilTIAZem CD 180 MG CAP PO SCH (09:18)
[2023-02-24] MEDS: levETIRAcetam 500 MG TAB PO SCH ×2 (09:18→20:17)
[2023-02-24] MEDS: Senokot S 8.6-50 MG TAB PO SCH ×2 (09:18→20:17)
[2023-02-24] MEDS: Carvedilol 6.25 MG TAB PO SCH ×2 (09:20→20:17)
[2023-02-24] MEDS: Isosorbide Mononitrate 60 MG ER.TAB PO SCH (09:21)
[2023-02-24] MEDS: Atorvastatin Calcium 20 MG TAB PO SCH (20:17)
[2023-02-24] MEDS: Lisinopril 20 MG TAB PO SCH (20:18)
[2023-02-24] MEDS: Famotidine 20 MG TAB PO SCH (21:52)
[2023-02-25] MEDS: Acetaminophen 325 MG TAB PO SCH ×4 (02:42→18:08)
[2023-02-25 05:44] LABS: Anion Gap 9 mmol/L (10-20); BUN (Urea Nitrogen) 16 mg/dL (9.8-20.1); Calc. Creatinine Clearance 71 mL/min (70-130); Calcium 8.9 mg/dL (7.8-10.44); Carbon Dioxide 31 mmol/L (23-31); Chloride 103 mmol/L (98-107); Estimated GFR 70; Glucose 107 mg/dL (83-110); Magnesium 1.6 mg/dL (1.6-2.6); Potassium 3.4 mmol/L (3.5-5.1); Sodium 140 mmol/L (136-145)
[2023-02-25] MEDS: Ipratropium/Albuterol 3 ML NEB NEB SCH ×4 (07:21→19:38)
[2023-02-25] MEDS ORDERED: Potassium Chloride 20 MEQ TAB PO SCH (07:45)
[2023-02-25] MEDS: levETIRAcetam 500 MG TAB PO SCH ×2 (08:56→20:46)
[2023-02-25] MEDS: Azithromycin 250 MG TAB PO SCH (08:56)
[2023-02-25] MEDS: dilTIAZem CD 180 MG CAP PO SCH (08:56)
[2023-02-25] MEDS: Senokot S 8.6-50 MG TAB PO SCH ×2 (08:56→20:46)
[2023-02-25] MEDS: Polyethylene Glycol 3350 17 GM Packet PO SCH (08:56)
[2023-02-25] MEDS: Carvedilol 6.25 MG TAB PO SCH ×2 (08:56→20:47)
[2023-02-25] MEDS: Isosorbide Mononitrate 60 MG ER.TAB PO SCH (08:56)
[2023-02-25 11:12] LABS: #Basophils 0.1 thou/uL (0.0-0.2); #Eosinphils 0.4 thou/uL (0.0-0.7); #Monocytes 0.7 thou/uL (0.11-0.59); #Neutrophils 5.3 thou/uL (1.40-6.50); %Basophils 0.5 % (0.0-1.0); %Eosinophils 4.6 % (0.0-10.0); %Lymphocytes 31.1 % (21.0-51.0); %Monocytes 7.5 % (0.0-10.0); Hemoglobin 10.7 g/dL (12.0-16.0); Mean Corpuscular HGB CONC 31.5 g/dL (32.0-36.0); Mean Corpuscular Hemoglobin 28.8 pg (27.0-31.0); Mean Corpuscular Volume 91.4 fl (78.0-98.0); Mean Platelet Volume 10.9 fL (7.4-10.4); Platelet Count 176 10x3/uL (130-400); Red Blood Cell (RBC) Count 3.72 mill/uL (4.20-5.40); White Blood Cell (WBC) Count 9.5 10x3/uL (4.8-10.8)
[2023-02-25 13:17] LABS: #Basophils 0.1 thou/uL (0.0-0.2); #Eosinphils 0.4 thou/uL (0.0-0.7); #Monocytes 0.6 thou/uL (0.11-0.59); #Neutrophils 4.8 thou/uL (1.40-6.50); %Basophils 0.6 % (0.0-1.0); %Eosinophils 4.5 % (0.0-10.0); %Lymphocytes 34.3 % (21.0-51.0); %Monocytes 6.7 % (0.0-10.0); %Neutrophils 53.6 % (42.0-75.0); Hematocrit 34.4 % (36.0-47.0); Hemoglobin 10.8 g/dL (12.0-16.0); Mean Corpuscular HGB CONC 31.4 g/dL (32.0-36.0); Mean Corpuscular Hemoglobin 28.8 pg (27.0-31.0); Mean Corpuscular Volume 91.7 fl (78.0-98.0); Mean Platelet Volume 11.2 fL (7.4-10.4); Platelet Count 173 10x3/uL (130-400); Red Blood Cell (RBC) Count 3.75 mill/uL (4.20-5.40); White Blood Cell (WBC) Count 8.9 10x3/uL (4.8-10.8)
[2023-02-25 13:44] LABS: Anion Gap 13 mmol/L (10-20); BUN (Urea Nitrogen) 15 mg/dL (9.8-20.1); Calc. Creatinine Clearance 68 mL/min (70-130); Carbon Dioxide 29 mmol/L (23-31); Chloride 101 mmol/L (98-107); Estimated GFR 66; Glucose 115 mg/dL (83-110); Potassium 3.7 mmol/L (3.5-5.1); Sodium 139 mmol/L (136-145)
[2023-02-25] MEDS: Lisinopril 20 MG TAB PO SCH (20:47)
[2023-02-25] MEDS: Famotidine 20 MG TAB PO SCH (20:47)
[2023-02-25] MEDS: Atorvastatin Calcium 20 MG TAB PO SCH (20:47)
[2023-02-26] MEDS: Acetaminophen 325 MG TAB PO SCH ×3 (00:41→12:40)
[2023-02-26] MEDS: Ipratropium/Albuterol 3 ML NEB NEB SCH ×3 (07:09→14:23)
[2023-02-26] MEDS: levETIRAcetam 500 MG TAB PO SCH (08:55)
[2023-02-26] MEDS: dilTIAZem CD 180 MG CAP PO SCH (08:55)
[2023-02-26] MEDS: Isosorbide Mononitrate 60 MG ER.TAB PO SCH (08:55)
[2023-02-26] MEDS: Senokot S 8.6-50 MG TAB PO SCH (08:55)
[2023-02-26] MEDS: Azithromycin 250 MG TAB PO SCH (08:55)
[2023-02-26] MEDS: Carvedilol 6.25 MG TAB PO SCH (08:55)
[2023-02-26] MEDS: Polyethylene Glycol 3350 17 GM Packet PO SCH (08:56)
[2023-02-26] MEDS: Labetalol HCl 100 MG/20 ML VIAL SLOW IVP PRN (15:30)
[2023-02-26 15:42] VITALS: BP 149/72; TEMP 98.6
== END 2023-02-26 18:27 | disposition home or self-care (01) | DRG 85 ==
LOC: ERS 17:32 → CCU 18:30 → SURG A 02-22 12:37
PROVIDERS: ADMIT Surgery; ATTEND Surgery
DX: S06.5X0A Traumatic subdural hemorrhage without loss of consciousness, initial encounter (principal); J18.9 Pneumonia, unspecified organism; J96.01 Acute respiratory failure with hypoxia; S06.6X0A Traumatic subarachnoid hemorrhage without loss of consciousness, initial encounter; G40.909 Epilepsy, unspecified, not intractable, without status epilepticus; I50.9 Heart failure, unspecified; I11.0 Hypertensive heart disease with heart failure; I48.91 Unspecified atrial fibrillation; Z86.73 Personal history of transient ischemic attack (TIA), and cerebral infarction without residual deficits; Z95.0 Presence of cardiac pacemaker; Z90.710 Acquired absence of both cervix and uterus; Z98.890 Other specified postprocedural states; Z79.82 Long term (current) use of aspirin; Z79.01 Long term (current) use of anticoagulants; Z79.899 Other long term (current) drug therapy; W07.XXXA Fall from chair, initial encounter
CPT/HCPCS: 36415; 36416; 70450; 71045; 71046; 72125; 80048; 80053; 83735; 83880; 84100; 85025; 86850; 86900; 86901; 87040; 93005; 93306; 94640; G0390; J0360; J0692; J1940; J2405; J3490; J7050; J7620; S0028